=== PATIENT | female | born 1960 | race Caucasian/White ===

== ENCOUNTER 2016-11-09 15:35 | Day surgery (SDC) | payer OTHER ==
[~2016-11-09] VITALS: Ht 157.5 cm; Wt 80.2 kg
[2016-11-09 16:01] VITALS: Ht 157.5 cm; Wt 80.2 kg
[2016-11-09] MEDS ORDERED: LIDOCAINE 2% (SDV) 5 ML INJ ONE (16:11)
[2016-11-09] MEDS ORDERED: PROPOFOL 20 ML ONE ×2 (16:11→16:12)
[2016-11-09] MEDS ORDERED: SIMVASTATIN PO (16:15)
[2016-11-09] MEDS ORDERED: HYDROCODONE PO (16:15)
[2016-11-09] MEDS ORDERED: VALIUM PO (16:15)
[2016-11-09] MEDS ORDERED: LEVOTHYROID PO (16:15)
--- NOTE | 2016-11-09 16:53 | OPPN ---
Date/Time of Note Date/Time of Note DATE: 11/09/16 TIME: 16:52 Operative Report Preoperative Diagnosis Rectal bleeding Postoperative Diagnosis Diverticulosis of the colon Internal hemorrhoids Operation/Procedure Performed Colonoscopy Surgeon see signature line resident assistant None Anesthesia: MAC Estimated blood loss: none Transfusion Required none Specimen None Grafts/Implants none Complications none SUKUMAR HERRERA MD Nov 09, 2016 16:53
--- NOTE | 2016-11-09 17:26 | GILP ---
DATE OF PROCEDURE: 11/09/2016 PROCEDURE PERFORMED: Colonoscopy. SURGEON: Wicho Gamboa MD PREOPERATIVE DIAGNOSIS: Rectal bleeding. POSTOPERATIVE DIAGNOSES: 1. Colonoscopy all the way to the cecum. 2. Diverticulosis of the colon. 3. Internal hemorrhoids. INDICATIONS FOR THE PROCEDURE: Ms. Washington is a 56-year-old female patient who had rectal bleeding. Patient was scheduled for colonoscopy for further evaluation. The procedure and possible complications were well explained to the patient. The patient understood and consented to the procedure. DESCRIPTION OF PROCEDURE: Under the influence of anesthesia, the colonoscope was carefully introduced into the rectum. Under direct vision, it was advanced all the way to the cecum. FINDINGS: Patient had diverticulosis of the colon. She also had internal hemorrhoids. No colitis or neoplasm was identified. She tolerated the procedure very well. There was no complication from the procedure. At the end of the procedure, she was awake, with stable vital signs, and she was discharged home in the care of her family. IMPRESSION: 1. Colonoscopy all the way to the cecum. 2. Diverticulosis of the colon. 3. Internal hemorrhoids. 4. No colitis or neoplasm was identified. PLAN: 1. Anusol HC 2.5 percent cream b.i.d. 2. Next screening colonoscopy in 10 years. Dictated By: MD NENITA Perez/giuseppe/chantelle /Document#: [id number] CC: Wicho Gamboa MD;*[facility]*
--- NOTE | 2016-11-14 11:25 | CONS ---
PATIENT NAME: LESLIE SUMMERS DATE OF ADMISSION: 09/07/2016 DATE OF CONSULTATION: HISTORY OF PRESENT ILLNESS: I thank you very much for this kind referral. Ms. Leslie Summers is a 56-year-old female patient who has been referred to me for further evaluation of rectal bleeding. The patient also noticed a change in the bowel habit with left lower quadrant abdominal pain. No past history of colon neoplasm. Her appetite has been somewhat poor and she has been losing weight. The patient does not have any upper abdominal pain, nausea or vomiting. She is not taking any nonsteroidal anti-inflammatory agents. No history of gallstones. The patient has history of hepatitis C. 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 She is not hypertensive or diabetic. She does not have any heart disease or lung problem. There is no history of kidney disease. She has hypothyroidism. She also has hyperlipidemia. She is status post Lap-Band placement. She is a nonsmoker. No history of alcohol abuse. No family history of gastrointestinal tract neoplasm. ALLERGIES: NO HISTORY OF DRUG ALLERGY. MEDICATION: 1. Levothyroxine. 2. Simvastatin. 3. Hydrocodone. PHYSICAL EXAMINATION: VITAL SIGNS: She is 5 feet 2 inches tall and weighs 190 pounds. HEART: Normal heart sounds. LUNGS: Clear. ABDOMEN: Soft. The patient has gastrostomy tube on the anterior abdominal wall. Liver and spleen are not palpable. No masses. Normal bowel sounds are heard. NEUROLOGIC: Normal exam. IMPRESSION: 1. Rectal bleeding. 2. Change in the bowel habit and left lower quadrant abdominal pain. 3. Patient does not want rectal exam at the present time and she wants it to be done at the time of colonoscopy. 4. Hypothyroidism. 5. Hyperlipidemia. 6. Chronic hepatitis C. 7. Status post surgery for cancer of the tonsils. 8. Status post endoscopic gastrostomy tube placement. 9. Status post Lap-Band placement. PLAN: Colonoscopy for further evaluation. Because of the multiple medical problems and obesity she needs monitored anesthesia care for the procedures. The procedure and possible complications were well explained to the patient. She understands and consents to the procedure. I thank you once again. With warmest personal regards, Dictated By: MD NENITA Perez/giuseppe/bessy /Document#: [id number]
== END 2016-11-09 17:14 | disposition home or self-care (01) ==
LOC: GIL 15:35
PROVIDERS: ATTEND Internal Medicine Gastroenterology
DX: R19.4 Change in bowel habit (principal); K57.90 Diverticulosis of intestine, part unspecified, without perforation or abscess without bleeding; K64.8 Other hemorrhoids; E78.5 Hyperlipidemia, unspecified
CPT/HCPCS: 45378; Z7610